=== PATIENT | male | born 1975 | race African-American/Black ===

== ENCOUNTER 2024-12-28 15:16 | Emergency (ER) | payer OTHER ==
[~2024-12-28] VITALS: Ht 175.3 cm; Wt 77.0 kg
[2024-12-28 15:18] VITALS: O2SAT 97
[2024-12-28] MEDS ORDERED: KETOROLAC 15MG/ML VIAL IV ONE (15:30)
[2024-12-28] MEDS: SODIUM CHLORIDE 0.9% 1,000 ML IV ONE (15:36)
[2024-12-28] MEDS: LEVETIRACETAM 1000MG PREMIX 100 ML IV ONE (15:37)
[2024-12-28 15:54] LABS: BASOPHILS % 0.9 % (0.0-2.0); EOSINOPHILS % 0.6 % (0.0-5.0); HEMATOCRIT. 34.9 % (42.0-52.0); HEMOGLOBIN. 12.2 g/dL (14.0-18.0); LYMPHOCYTES % 21.6 % (20.0-50.0); MEAN PLATELET VOLUME 8.4 fl (7.4-10.4); MONOCYTES % 9.3 % (2.0-8.0); NEUTROPHILS % 67.6 % (40.0-76.0); PLATELET 230 x1000/uL (130-400); RED BLOOD CELL COUNT 3.41 mill/uL (4.7-6.1); RED CELL DISTRIBUTION WIDTH 15.0 % (11.6-14.6)
[2024-12-28 16:03] LABS: INR 1.1
[2024-12-28 16:10] LABS: CREATININE 0.9 mg/dL (0.6-1.3); ETHANOL BLOOD < 10 mg/dL (<10); UREA NITROGEN BLOOD 6 mg/dL (9-23)
[2024-12-28 16:12] LABS: ASPARTATE AMINOTRANSFERASE 93 IU/L (<34); BILIRUBIN DIRECT 0.3 mg/dL (<=3.0); BILIRUBIN TOTAL 0.9 mg/dL (0.1-1.0); PROTEIN TOTAL 8.1 g/dL (6.0-8.3)
[2024-12-28] MEDS: KCL 20MEQ/100ML PREMIX 100 ML IV SCH (18:37)
[2024-12-28 18:39] LABS: *AMPHETAMINES SCREEN URINE NEGATIVE (NEGATIVE); *BARBITURATES SCREEN URINE NEGATIVE (NEGATIVE); *BENZODIAZEPINES SCREEN URINE NEGATIVE (NEGATIVE); *COCAINE SCREEN URINE NEGATIVE (NEGATIVE); CANNABINOID URINE SCREEN NEGATIVE (NEGATIVE); ECSTASY MDMA SCREEN URINE NEGATIVE (NEGATIVE); METHADONE URINE SCREEN NEGATIVE (NEGATIVE); OPIATES URINE SCREEN NEGATIVE (NEGATIVE); PHENCYCLIDINE URINE SCREEN NEGATIVE (NEGATIVE)
[2024-12-28 21:46] VITALS: BP 144/84; PULSE 68; RESP 20; TEMP 36.6; O2SAT 98
== END 2024-12-28 22:07 | disposition home or self-care (01) ==
LOC: ER 15:16 → CMPBEDREQ 12-29 10:35
DX: R56.9 Unspecified convulsions (principal); I10 Essential (primary) hypertension; F12.90 Cannabis use, unspecified, uncomplicated; Z86.73 Personal history of transient ischemic attack (TIA), and cerebral infarction without residual deficits
CPT/HCPCS: 80076; 80305; 80048; 80320; 85025; 85610; 36415; 70450; 93005; 96367; 96365; 96366; 99285; J1953; J3480; J7030; G0480